=== PATIENT | female | born 1990 | race Caucasian/White ===

== ENCOUNTER 2022-03-30 18:53 | Emergency (ER) | payer SELFPAY ==
[2022-03-30] MEDS ORDERED: PENVEE K 500 M500 MG PO (20:35)
== END 2022-03-30 21:10 | disposition home or self-care (01) ==
LOC: ER1 18:53
DX: J02.0 Streptococcal pharyngitis (principal)
CPT/HCPCS: 87081; 87880; 96372; 99282; J1885